=== PATIENT | female | born 1975 | race Caucasian/White ===

== ENCOUNTER 2021-01-14 10:46 | Emergency (ER) | payer MEDICAID ==
[2021-01-14 11:03] VITALS: BP 116/83
[2021-01-14] MEDS ORDERED: ACETAMINOPHEN 325 MG TABLET PO STA (11:09)
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
== END 2021-01-14 11:37 | disposition home or self-care (01) ==
LOC: ED 10:46
DX: R51.9 Headache, unspecified (principal)
CPT/HCPCS: 99282; A9270

== ENCOUNTER 2021-07-13 06:22 | Outpatient (CLI) | payer BC | END 2021-07-13 06:23 | disposition EMS.NT | LOC: EMS 06:22 | DX: Z04.3 Encounter for examination and observation following other accident (principal); M79.604 Pain in right leg ==

== ENCOUNTER 2021-07-13 07:30 | Emergency (ER) | payer BC, MEDICAID ==
--- NOTE | 2021-07-13 07:49 | ED Physician Documentation ---
PD HPI LOWER EXT INJURY - Stated complaint Stated Complaint: R LEG INJURY - Chief complaint Chief Complaint: Trauma Ext - History obtained from History obtained from: Patient - History of Present Illness PD HPI LOW EXT INJURY LOCATION: Right, Knee, Lower leg Type of injury: Fall, Twist Where injury occurred: Home Timing - onset: Today Timing - duration: Minutes Timing - details: Abrupt onset, Still present Improved by: Rest, Immobilization Worsened by: Moving, Palpating Associated symptoms: No: Weakness, Numbness, Tingling, Swelling, Discolored Contributing factors: No: Anticoagulated, Prior ortho surgery Similar symptoms before: Diagnosis (patellar dislocation) Recently seen: Surgery (had wisdom tooth extraction) - Additional information Additional information: 45 y/o female going down a set of steps has twisted her leg and struck it on the steps. She has pain just below the knee on the right side. Review of Systems Constitutional: denies: Fever Respiratory: denies: Cough GI: denies: Vomiting Musculoskeletal: reports: Extremity pain. denies: Neck pain, Back pain Neurologic: denies: Generalized weakness, Focal weakness, Numbness PD PAST MEDICAL HISTORY - Past Surgical History Past Surgical History: No - Present Medications Home Medications: Ambulatory Orders Medication Instructions Recorded Confirmed No Known Home Medications 01/14/21 07/13/21 - Allergies Allergies/Adverse Reactions: Allergies Allergy/AdvReac Type Severity Reaction Status Date / Time Penicillins Allergy Hives Verified 07/13/21 07:43 - Social History Does the pt smoke?: No Smoking Status: Never smoker Does the pt drink ETOH?: No Does the pt have substance abuse?: No PD ED PE NORMAL - Vitals Vital signs reviewed: Yes (nomral ) - General General: Alert and oriented X 3, No acute distress, Well developed/nourished - HEENT HEENT: Atraumatic, PERRL, EOMI - Respiratory Respiratory: No respiratory distress - Derm Derm: Normal color, Warm and dry, No rash - Extremities Extremities: No deformity, No edema, Other (pain to palp right poximal fibular shaft ) - Neuro Neuro: Alert and oriented X 3, 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, No motor deficit, No sensory deficit, Normal speech Eye Opening: Spontaneous Motor: Obeys Commands Verbal: Oriented GCS Score: 15 - Psych Psych: Normal mood, Normal affect Results - Vitals Vitals: Vital Signs - 24 hr 07/13/21 07/13/21 07:40 08:28 Temperature 37.3 C 37 C Heart Rate 84 82 Respiratory 16 18 Rate Blood Pressure 111/80 103/76 O2 Saturation 99 100 Oxygen O2 Source Room air - Rads (name of study) tib/fib Radiology: Prelim report reviewed (Impression: Acute slightly displaced fracture involving proximal fibular shaft as above.), EMP read indepedently, See rad report Right knee Radiology: Prelim report reviewed (Impression: Anterior right knee soft tissue swelling. No gross acute right knee fracture or dislocation. No patella subluxation seen. No significant joint effusion. Acute oblique fracture involving the proximal fibular shaft as above.), EMP read indepedently, See rad report Procedures - Splint (location) right LE Splint applied by: Tech Type of splint: Fiberglass, Posterior Other: Patient tolerated well, No complications, Neurovascular intact, Good alignment, Crutches provided PD MEDICAL DECISION MAKING - ED course Complexity details: reviewed results, re-evaluated patient, considered differential, d/w patient ED course: 45-year-old female with a trip down steps has a fracture of the proximal shaft of the right fibula with mild displacement. She is placed into a posterior splint and will follow up with orthopedics for casting. Departure - Departure Disposition: 01 Home, Self Care Clinical Impression: Fx shaft fibula-closed Qualifiers: Encounter type: initial encounter Fracture morphology: spiral Fracture alignme nt: displaced Laterality: right Qualified Code(s): S82.441A - Displaced spiral fracture of shaft of right fibula, initial encounter for closed fracture Condition: Stable Instructions: ED Fx Lower Ext Follow-Up: Nash Ovalle MD [Provider Admit Priv/Credential] - Comments: Brina, you have broken the bone in your right leg right where it hurts and we have put you into a long leg splint. Follow-up with Dr. Ovalle for casting th is week. Discharge Date/Time: 07/13/21 09:35
--- NOTE | 2021-07-13 08:20 | XRAY Report ---
PROCEDURE: Knee 4 View RT INDICATIONS: patellar dislocation/reduction TECHNIQUE: 4 views of the right knee(s) were acquired. COMPARISON: None. FINDINGS: Bones: Acute oblique fracture through visualized portion of proximal fibular shaft is seen with minim al lateral displacement at fracture site. No right knee fracture or dislocation. Mild medial femoral tibial compartment osteoarthritis is seen. No suspicious bony lesions. Soft tissues: There is anterior right knee soft tissue swelling. No joint effusion. No suspicious s oft tissue calcifications. IMPRESSION: Anterior right knee soft tissue swelling. No gross acute right knee fracture or dislocati on. No patella subluxation is seen. No significant joint effusion. Acute oblique fracture involving p roximal fibular shaft as above. Reviewed by: Topher Patel MD on 07/13/2021 8:19 AM PST Approved by: Topher Patel MD on 07/13/2021 8:19 AM PST Station ID: [id number]
--- NOTE | 2021-07-13 08:21 | XRAY Report ---
PROCEDURE: Tib/Fib RT INDICATIONS: fall twist proximal fib pain TECHNIQUE: 2 views of the tibia and fibula were acquired. COMPARISON: None FINDINGS: Bones: Acute spiral fracture through proximal fibular shaft is seen with anterior and lateral displac ement at fracture sites. No other fracture or dislocation is seen. No suspicious bony lesions. Soft tissues: No suspicious soft tissue calcifications or masses. IMPRESSION: Acute slightly displaced fracture involving proximal fibular shaft as above. Reviewed by: Topher Patel MD on 07/13/2021 8:20 AM PST Approved by: Topher Patel MD on 07/13/2021 8:20 AM PST Station ID: [id number]
[2021-07-13 08:29] VITALS: BP 103/76
== END 2021-07-13 09:35 | disposition home or self-care (01) ==
LOC: ED 07:30
DX: S82.441A Displaced spiral fracture of shaft of right fibula, initial encounter for closed fracture (principal); W10.9XXA Fall (on) (from) unspecified stairs and steps, initial encounter; Y92.009 Unspecified place in unspecified non-institutional (private) residence as the place of occurrence of the external cause
CPT/HCPCS: 29505; 99283

== ENCOUNTER 2021-09-01 07:45 | Outpatient (CLI) | payer BC ==
--- NOTE | 2021-09-01 11:29 | XRAY Report ---
PROCEDURE: Knee 3 View RT INDICATIONS: PROXIMAL FIB FRACTURE TECHNIQUE: 3 views of the right knee(s) were acquired. COMPARISON: None. FINDINGS: Bones: Mildly displaced oblique fracture of the right proximal fibula. No suspicious bony lesions. Soft tissues: No joint effusion. No suspicious soft tissue calcifications. IMPRESSION: Right proximal fibular fracture. Reviewed by: Charles Brunson MD on 09/01/2021 11:27 AM [facility] Approved by: Charles Brunson MD on 09/01/2021 11:27 AM [facility] Station ID: [id number]
== END 2021-09-01 07:46 | disposition home or self-care (01) ==
LOC: DI.WOS 07:45
PROVIDERS: ATTEND Orthopaedic Surgery
DX: S82.831A Other fracture of upper and lower end of right fibula, initial encounter for closed fracture (principal)

== ENCOUNTER 2021-09-22 10:59 | Emergency (ER) | payer OTHER ==
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
[2021-09-22 13:22] VITALS: BP 111/78
== END 2021-09-22 13:22 | disposition home or self-care (01) ==
LOC: ED 10:59
DX: S16.1XXA Strain of muscle, fascia and tendon at neck level, initial encounter (principal); V43.52XA Car driver injured in collision with other type car in traffic accident, initial encounter
CPT/HCPCS: 99282; 99284